=== PATIENT | female | born 1995 | race Caucasian/White ===

== ENCOUNTER 2017-12-18 12:31 | Emergency (ER) | payer MEDICAID ==
[2017-12-18 14:32] LABS: ADD UMIC NO; UR ASCORBIC ACID NEGATIVE (NEGATIVE); UR BILIRUBIN (Dip) NEGATIVE (NEGATIVE); UR BLOOD (Dip) NEGATIVE (NEGATIVE); UR CLARITY SLIGHTLY CLOUDY (CLEAR); UR COLOR YELLOW (YELLOW); UR GLUCOSE (Dip) NEGATIVE (NEGATIVE); UR KETONES (Dip) 1+ mg/dL (NEGATIVE); UR LEUKOCYTE ESTERASE (Dip) NEGATIVE Leu/ul (NEGATIVE); UR MUCUS MODERATE /HPF (NONE SEEN); UR NITRITE (Dip) NEGATIVE (NEGATIVE); UR RBC 0 /HPF (0-5); UR SPECIFIC GRAVITY (Dip) 1.019 (1.003-1.030); UR SQUAMOUS EPITHELIAL CELL FEW /HPF (FEW); UR TOTAL PROTEIN (Dip) NEGATIVE (NEGATIVE); UR UROBILINOGEN (Dip) NEGATIVE (NEGATIVE); UR WBC 2 /HPF (0-5)
== END 2017-12-18 15:05 | disposition home or self-care (01) ==
LOC: FTE 12:31
DX: O26.892 Other specified pregnancy related conditions, second trimester (principal); R10.2 Pelvic and perineal pain; Z3A.16 16 weeks gestation of pregnancy
CPT/HCPCS: 76805; 81001; 81003; 87591; 99284-25

== ENCOUNTER 2018-02-15 23:25 | Outpatient (CLI) | payer MEDICAID ==
[2018-02-16 00:34] LABS: ADD MAN DIFF? NO
[2018-02-16 00:53] LABS: ADD UMIC NO; UR ASCORBIC ACID NEGATIVE (NEGATIVE); UR BILIRUBIN (Dip) NEGATIVE (NEGATIVE); UR BLOOD (Dip) NEGATIVE (NEGATIVE); UR CLARITY SLIGHTLY CLOUDY (CLEAR); UR COLOR YELLOW (YELLOW); UR GLUCOSE (Dip) NEGATIVE (NEGATIVE); UR KETONES (Dip) NEGATIVE (NEGATIVE); UR LEUKOCYTE ESTERASE (Dip) NEGATIVE Leu/ul (NEGATIVE); UR MUCUS FEW /HPF (NONE SEEN); UR NITRITE (Dip) NEGATIVE (NEGATIVE); UR RBC 0 /HPF (0-5); UR SPECIFIC GRAVITY (Dip) 1.017 (1.003-1.030); UR SQUAMOUS EPITHELIAL CELL FEW /HPF (FEW); UR TOTAL PROTEIN (Dip) NEGATIVE (NEGATIVE); UR UROBILINOGEN (Dip) NEGATIVE (NEGATIVE); UR WBC 3 /HPF (0-5)
[2018-02-16 00:56] LABS: WHITE BLOOD COUNT 8.5 10^3/ul (4.8-10.8)
[2018-02-16 00:56] LABS: BASOPHILS % 0.4 % (0.0-2.0); EOSINOPHILS # 0.1 10^3/ul (0.0-0.5); EOSINOPHILS % 0.8 % (0.0-7.0); HEMATOCRIT 29.9 % (37.0-47.0); HEMOGLOBIN 9.6 g/dl (12.0-16.0); LYMPHOCYTES # 1.9 10^3/ul (0.8-2.9); LYMPHOCYTES % 22.3 % (18.0-55.0); MEAN CORPUSCULAR HGB CONC 32.1 g/dl (32.0-37.0); MEAN CORPUSCULAR VOLUME 96.5 fl (72.0-104.0); MEAN PLATELET VOLUME 10.8 fl (7.4-10.4); MONOCYTE # 0.8 10^3/ul (0.3-0.9); MONOCYTES % 9.2 % (0.0-13.0); NEUTROPHIL # 5.7 10^3/ul (1.6-7.5); NEUTROPHILS % 66.6 % (30.0-74.0); PLATELET COUNT 170 10^3/UL (140-415); RED CELL DISTRIBUTION WIDTH 13.1 % (11.5-14.5)
[2018-02-16 01:05] LABS: ALANINE AMINOTRANSFERASE 31 IU/L (13-69); ALBUMIN 3.7 g/dl (3.3-4.9); ALBUMIN/GLOBULIN RATIO 1.23; ALKALINE PHOSPHATASE 49 IU/L (42-121); AMYLASE 86 U/L (11-123); ANION GAP 10 (8-16); ASPARTATE AMINO TRANSFERASE 24 IU/L (15-46); BILIRUBIN,INDIRECT 0.1 mg/dl (0-1.1); BILIRUBIN,TOTAL 0.1 mg/dl (0.2-1.3); BLOOD UREA NITROGEN 9 mg/dl (7-20); CALCIUM 8.9 mg/dl (8.4-10.2); CARBON DIOXIDE 23 mmol/L (21-31); CHLORIDE 111 mmol/L (97-110); CREATININE 0.49 mg/dl (0.44-1.00); GLUCOSE 86 mg/dl (70-220); LIPASE 112 U/L (23-300); POTASSIUM 4.1 mmol/L (3.5-5.1); SODIUM 140 mmol/L (135-144); TOTAL PROTEIN 6.7 g/dl (6.1-8.1)
== END 2018-02-16 02:03 | disposition home or self-care (01) ==
LOC: OBT 23:25 → L-D 23:25
DX: O26.892 Other specified pregnancy related conditions, second trimester (principal); Z3A.25 25 weeks gestation of pregnancy; R10.2 Pelvic and perineal pain
CPT/HCPCS: 76705; 80053; 81001; 81003; 82150; 83690; 85025

== ENCOUNTER 2018-06-04 21:00 | Inpatient (IN) | payer MEDICAID ==
[2018-06-04] MEDS ORDERED: LACTATED RINGER'S 1,000 ML IV (22:18)
[2018-06-04] MEDS ORDERED: METHYLERGONOVINE 0.2 MG INJ IM (22:30)
[2018-06-04] MEDS ORDERED: LIDOCAINE 1% (MPF) 30 ML INJ INJ (22:30)
[2018-06-04] MEDS ORDERED: CARBOPROST 250 MCG INJ IM (22:30)
[2018-06-04] MEDS ORDERED: OXYTOCIN 30 UNITS/LR 500 ML IV ×2 (22:30)
[2018-06-04] MEDS ORDERED: MISOPROSTOL 200 MCG TAB PR (22:30)
[2018-06-04] MEDS ORDERED: IBUPROFEN 600 MG TAB PO (22:30)
[2018-06-04 22:41] LABS: ADD MAN DIFF? NO
[2018-06-04 22:45] LABS: BASOPHILS % 0.5 % (0.0-2.0); EOSINOPHILS # 0.1 10^3/ul (0.0-0.5); HEMATOCRIT 33.9 % (37.0-47.0); HEMOGLOBIN 11.2 g/dl (12.0-16.0); LYMPHOCYTES # 1.5 10^3/ul (0.8-2.9); LYMPHOCYTES % 24.6 % (18.0-55.0); MEAN CORPUSCULAR HEMOGLOBIN 30.8 pg (29.0-33.0); MEAN CORPUSCULAR VOLUME 93.1 fl (72.0-104.0); MEAN PLATELET VOLUME 12.5 fl (7.4-10.4); MONOCYTE # 0.7 10^3/ul (0.3-0.9); MONOCYTES % 10.7 % (0.0-13.0); NEUTROPHIL # 3.8 10^3/ul (1.6-7.5); NEUTROPHILS % 62.9 % (30.0-74.0); PLATELET COUNT 125 10^3/UL (140-415); RED BLOOD COUNT 3.64 10^6/ul (4.20-5.40); RED CELL DISTRIBUTION WIDTH 13.7 % (11.5-14.5)
[2018-06-04 22:45] LABS: WHITE BLOOD COUNT 6.1 10^3/ul (4.8-10.8)
[2018-06-04 23:06] LABS: INR 0.97
[2018-06-04 23:07] LABS: PARTIAL THROMBOPLASTIN TIME 31.2 Sec (23.0-35.0)
[2018-06-05] MEDS ORDERED: LIDOCAINE 0.5% (SDV) 50 ML INJ INJ (00:30)
[2018-06-05] MEDS ORDERED: MINERAL OIL LIGHT 10 ML VIAL TOP (00:30)
[2018-06-05] MEDS: MISOPROSTOL 50 MCG CAPSULE PO (00:50)
[2018-06-05] MEDS: LACTATED RINGER'S 1,000 ML IV ×5 (00:50→18:08)
[2018-06-05] MEDS: OXYTOCIN 30 UNITS/LR 500 ML IV (06:27)
[2018-06-05] MEDS: BUTORPHANOL 2 MG INJ IV (09:28)
[2018-06-05 14:30] LABS: ADD MAN DIFF? NO
[2018-06-05 14:31] LABS: BASOPHILS % 0.2 % (0.0-2.0); HEMATOCRIT 35.2 % (37.0-47.0); HEMOGLOBIN 11.8 g/dl (12.0-16.0); LYMPHOCYTES # 0.8 10^3/ul (0.8-2.9); LYMPHOCYTES % 7.6 % (18.0-55.0); MEAN CORPUSCULAR HEMOGLOBIN 30.7 pg (29.0-33.0); MEAN CORPUSCULAR HGB CONC 33.5 g/dl (32.0-37.0); MEAN CORPUSCULAR VOLUME 91.7 fl (72.0-104.0); MEAN PLATELET VOLUME 11.8 fl (7.4-10.4); MONOCYTE # 0.6 10^3/ul (0.3-0.9); MONOCYTES % 5.2 % (0.0-13.0); NEUTROPHIL # 9.4 10^3/ul (1.6-7.5); NEUTROPHILS % 86.3 % (30.0-74.0); PLATELET COUNT 121 10^3/UL (140-415); RED BLOOD COUNT 3.84 10^6/ul (4.20-5.40); RED CELL DISTRIBUTION WIDTH 13.6 % (11.5-14.5)
[2018-06-05 14:31] LABS: WHITE BLOOD COUNT 10.9 10^3/ul (4.8-10.8)
[2018-06-05 14:34] LABS: POSITIVE DIFF @See below
[2018-06-05 14:52] LABS: ALANINE AMINOTRANSFERASE 22 IU/L (13-69); ALBUMIN 3.5 g/dl (3.3-4.9); ALBUMIN/GLOBULIN RATIO 1.25; ALKALINE PHOSPHATASE 205 IU/L (42-121); ANION GAP 9 (5-13); ASPARTATE AMINO TRANSFERASE 17 IU/L (15-46); BILIRUBIN,INDIRECT 0.2 mg/dl (0-1.1); BILIRUBIN,TOTAL 0.2 mg/dl (0.2-1.3); BLOOD UREA NITROGEN 8 mg/dl (7-20); CALCIUM 8.8 mg/dl (8.4-10.2); CARBON DIOXIDE 19 mmol/L (21-31); CHLORIDE 106 mmol/L (97-110); CREATININE 0.53 mg/dl (0.44-1.00); Estimated GFR > 60 mL/min (>60); GLUCOSE 96 mg/dl (70-220); SODIUM 134 mmol/L (135-144); TOTAL PROTEIN 6.3 g/dl (6.1-8.1); URIC ACID 5.6 mg/dl (3.1-7.9)
[2018-06-05] MEDS ORDERED: DIPHENHYDRAMINE 50 MG INJ IV (15:00)
[2018-06-05] MEDS ORDERED: HYDROmorphONE 0.5 MG/0.5 ML SYG IV ×2 (15:00)
[2018-06-05] MEDS ORDERED: NALOXONE (0.4 MG/ML) INJ IV (15:00)
[2018-06-05] MEDS ORDERED: ONDANSETRON 4 MG INJ IV (15:00)
[2018-06-05] MEDS ORDERED: KETOROLAC 30 MG INJ IV (15:00)
[2018-06-05] MEDS ORDERED: ZOLPIDEM 5 MG TAB PO (15:00)
[2018-06-05 15:36] LABS: ADD UMIC NO; UR ASCORBIC ACID NEGATIVE (NEGATIVE); UR BILIRUBIN (Dip) NEGATIVE (NEGATIVE); UR BLOOD (Dip) NEGATIVE (NEGATIVE); UR CLARITY CLEAR (CLEAR); UR COLOR YELLOW (YELLOW); UR GLUCOSE (Dip) NEGATIVE (NEGATIVE); UR KETONES (Dip) 1+ mg/dL (NEGATIVE); UR LEUKOCYTE ESTERASE (Dip) NEGATIVE Leu/ul (NEGATIVE); UR NITRITE (Dip) NEGATIVE (NEGATIVE); UR SPECIFIC GRAVITY (Dip) 1.014 (1.003-1.030); UR TOTAL PROTEIN (Dip) NEGATIVE (NEGATIVE); UR UROBILINOGEN (Dip) NEGATIVE (NEGATIVE)
[2018-06-05 15:37] LABS: RAPID PLASMA REAGIN NONREACTIVE (NR)
[2018-06-05] MEDS: AMPICILLIN 2 GM/NS (PMX) 100 ML IV (21:03)
[2018-06-05] MEDS: FENTAnyl 2MCG/ML-ROPIV 0.2% 100 ML BAG EPI ×2 (21:45→23:38)
[2018-06-06] MEDS ORDERED: AMPICILLIN 1 GM/NS (PMX) 50 ML IV (01:00)
[2018-06-06] MEDS: OXYTOCIN 30 UNITS/LR 500 ML IV (01:41)
[2018-06-06] MEDS ORDERED: DEXTROSE 5%-LR 1,000 ML IV (01:52)
[2018-06-06] MEDS ORDERED: DIPHENHYDRAMINE 50 MG INJ IV (02:00)
[2018-06-06] MEDS ORDERED: METHYLERGONOVINE 0.2 MG INJ IM (02:00)
[2018-06-06] MEDS ORDERED: CARBOPROST 250 MCG INJ IM (02:00)
[2018-06-06] MEDS ORDERED: ACETAMINOPHEN 325 MG TAB PO (02:00)
[2018-06-06] MEDS ORDERED: ZOLPIDEM 5 MG TAB PO (02:00)
[2018-06-06] MEDS ORDERED: MISOPROSTOL 200 MCG TAB PR (02:00)
[2018-06-06] MEDS ORDERED: LANOLIN 7 GM TUBE TOP (02:00)
[2018-06-06] MEDS ORDERED: OXYTOCIN 30 UNITS/LR 500 ML IV (02:00)
[2018-06-06] MEDS ORDERED: ONDANSETRON 4 MG INJ IV (02:00)
[2018-06-06] MEDS: OXYCODONE/ASPIRIN (4.88/325) TAB PO ×3 (03:34→20:34)
[2018-06-06] MEDS: WITCH HAZEL/GLYCERIN PAD PR (03:35)
[2018-06-06] MEDS: BENZOCAINE 20% 56 ML SPRAY TOP (03:36)
[2018-06-06] MEDS: DIBUCAINE 1% 30 GM OINT TOP (03:36)
[2018-06-06] MEDS: LACTATED RINGER'S 1,000 ML IV* ×3 (05:22→17:52)
[2018-06-06] MEDS: SENNA/DOCUSATE NA (8.6MG/50MG) TAB PO (20:37)
[2018-06-06] MEDS: INFLUENZA VIRUS VACCINE 0.5 ML (DISPENSING) IM* (22:23)
[2018-06-07] MEDS: OXYCODONE/ASPIRIN (4.88/325) TAB PO (08:05)
[2018-06-07 08:53] LABS: ADD MAN DIFF? NO
[2018-06-07] MEDS: SENNA/DOCUSATE NA (8.6MG/50MG) TAB PO (08:55)
[2018-06-07 08:57] LABS: WHITE BLOOD COUNT 11.1 10^3/ul (4.8-10.8)
[2018-06-07 08:57] LABS: BASOPHILS % 0.4 % (0.0-2.0); EOSINOPHILS # 0.1 10^3/ul (0.0-0.5); EOSINOPHILS % 0.7 % (0.0-7.0); HEMATOCRIT 32.9 % (37.0-47.0); HEMOGLOBIN 10.7 g/dl (12.0-16.0); LYMPHOCYTES # 1.6 10^3/ul (0.8-2.9); LYMPHOCYTES % 14.6 % (18.0-55.0); MEAN CORPUSCULAR HEMOGLOBIN 30.5 pg (29.0-33.0); MEAN CORPUSCULAR HGB CONC 32.5 g/dl (32.0-37.0); MEAN CORPUSCULAR VOLUME 93.7 fl (72.0-104.0); MONOCYTE # 0.9 10^3/ul (0.3-0.9); MONOCYTES % 7.8 % (0.0-13.0); NEUTROPHIL # 8.4 10^3/ul (1.6-7.5); NEUTROPHILS % 75.8 % (30.0-74.0); PLATELET COUNT 137 10^3/UL (140-415); RED BLOOD COUNT 3.51 10^6/ul (4.20-5.40); RED CELL DISTRIBUTION WIDTH 13.9 % (11.5-14.5)
[2018-06-07] MEDS: DIPHTH/TET/ACEL PERTUSS (ADULT) 0.5 ML VIAL IM* (10:01)
[2018-06-08] MEDS ORDERED: MEASLES,MUMPS,RUBELLA VACCINE INJ SC* (09:00)
[2018-06-08] MEDS ORDERED: IBUPROFEN 600 MG TAB PO (18:00)
== END 2018-06-07 17:22 | disposition home or self-care (01) | DRG 807 ==
LOC: L-D 21:00 → PP1 06-06 02:55
PROVIDERS: Obstetrics & Gynecology
PROC: 3E033VJ Introduction of Other Hormone into Peripheral Vein, Percutaneous Approach (ICD-10-PCS; 2018-06-04)
PROC: 10E0XZZ Delivery of Products of Conception, External Approach (ICD-10-PCS; principal; 2018-06-06)
PROC: 0W8NXZZ Division of Female Perineum, External Approach (ICD-10-PCS; 2018-06-06)
DX: O48.0 Post-term pregnancy (principal); Z37.0 Single live birth; Z3A.40 40 weeks gestation of pregnancy
CPT/HCPCS: 62319; 76815; 80053; 81003; 84560; 85025; 85610; 85730; 86592; 86850; 86900; 86901; 90686